=== PATIENT | male | born 1945 | race Caucasian/White ===

== ENCOUNTER 2021-01-20 15:48 | Emergency (ER) | payer MEDICARE, BC ==
[2021-01-20] MEDS ORDERED: Boostrix 0.5 ML (Tdap) VIAL ONE (16:15)
[2021-01-20] MEDS ORDERED: Bacitracin 1 PK ONE (17:04)
== END 2021-01-20 17:13 | disposition home or self-care (01) ==
LOC: CSHERS 15:48
DX: S61.211A Laceration without foreign body of left index finger without damage to nail, initial encounter (principal); Z23 Encounter for immunization; W26.8XXA Contact with other sharp object(s), not elsewhere classified, initial encounter; I10 Essential (primary) hypertension
CPT/HCPCS: 12001; 90471; 90715